=== PATIENT | female | born 1945 | race Caucasian/White ===

== ENCOUNTER → 2017-01-06 | Outpatient (CLI) | payer OTHER | LOC: CIMAGING 10:05 | PROVIDERS: ATTEND Family Medicine | DX: R79.9 Abnormal finding of blood chemistry, unspecified (principal); K44.9 Diaphragmatic hernia without obstruction or gangrene | CPT/HCPCS: 71020-PO ==

== ENCOUNTER → 2017-01-09 | Outpatient (CLI) | payer OTHER ==
[~2017-01-09] MED LIST: IOPAMIDOL (ISOVUE-300) 100 ML BTL IV ONE
== END ==
LOC: CIMAGING 10:13
PROVIDERS: ATTEND Family Medicine
DX: N28.9 Disorder of kidney and ureter, unspecified (principal); K44.9 Diaphragmatic hernia without obstruction or gangrene; I70.0 Atherosclerosis of aorta
CPT/HCPCS: 74160; Q9967

== ENCOUNTER → 2017-02-18 | Outpatient (CLI) | payer OTHER | LOC: CIMAGING 15:49 → EDSTATUS 15:51 | PROVIDERS: ATTEND Family Medicine | DX: S92.354D Nondisplaced fracture of fifth metatarsal bone, right foot, subsequent encounter for fracture with routine healing (principal) | CPT/HCPCS: 73630-PO ==

== ENCOUNTER → 2017-03-11 | Outpatient (CLI) | payer OTHER | LOC: BRMIMAGING 14:51 | PROVIDERS: ATTEND Family Medicine | DX: Z13.820 Encounter for screening for osteoporosis (principal); M85.80 Other specified disorders of bone density and structure, unspecified site; Z82.62 Family history of osteoporosis; Z78.0 Asymptomatic menopausal state; Z79.899 Other long term (current) drug therapy; Z90.721 Acquired absence of ovaries, unilateral; Z90.710 Acquired absence of both cervix and uterus ==

== ENCOUNTER → 2017-04-17 | Outpatient (CLI) | payer OTHER | LOC: CIMAGING 10:57 | PROVIDERS: ATTEND Family Medicine | DX: Z12.31 Encounter for screening mammogram for malignant neoplasm of breast (principal) | CPT/HCPCS: G0202 ==

== ENCOUNTER → 2018-04-19 | Outpatient (CLI) | payer OTHER | LOC: CIMAGING 10:09 | PROVIDERS: ATTEND Family Medicine | DX: Z12.31 Encounter for screening mammogram for malignant neoplasm of breast (principal) ==

== ENCOUNTER → 2018-05-24 | Outpatient (CLI) | payer OTHER ==
[~2018-05-24] MED LIST changes: -IOPAMIDOL (ISOVUE-300) 100 ML BTL IV ONE; +IOPAMIDOL (ISOVUE-300) 100 ML BTL ONE
== END ==
LOC: CIMAGING 14:02
PROVIDERS: ATTEND Specialist
DX: N28.9 Disorder of kidney and ureter, unspecified (principal)
CPT/HCPCS: 74170; Q9967; 82565-PO

== ENCOUNTER → 2018-06-04 | Outpatient (CLI) | payer OTHER | LOC: CIMAGING 13:58 | PROVIDERS: ATTEND Family Medicine | DX: M25.571 Pain in right ankle and joints of right foot (principal); R60.9 Edema, unspecified ==

== ENCOUNTER → 2019-04-25 | Outpatient (CLI) | payer OTHER | LOC: EMCIMAGING 09:59 ==